=== PATIENT | male | born 1960 | race Caucasian/White ===

== ENCOUNTER 2019-12-11 10:15 | Observation (INO) | payer OTHER, SELFPAY ==
[2019-12-11] VITALS (7 sets, daily range): BP systolic 114–146; BP diastolic 73–92; PULSE 63–76; RESP 16–18; TEMP 36.3–36.7; O2SAT 99–100; BMI 28.8
--- NOTE | ~2019-12-11 | MR_ITS ---
EXAMINATION: MR brain/brain stem wo/w con EXAM DATE: 12/12/2019 07:52 INDICATION: Blurred vision, extremity tingling and numbness, right-sided headache. TECHNIQUE: Magnetic resonance imaging (MRI) of the brain/brain stem obtained without contrast. Sagit joe T1, axial diffusion, gradient echo (T2*), T1, T2, FLAIR sequences obtained. Patient was then inj ected with 17 cc intravenous Multihance contrast. Axial and coronal postcontrast T1 weighted sequence s obtained. There is no prior study for comparison. FINDINGS: There are no areas of restricted diffusion to suggest acute infarction. There is no acute hemorrhage seen on the T2*, a hemosiderin sensitive sequence. No intraparenchymal brain mass. The ve ntricles are normal in size. There are no extra-axial collections. Flow voids are seen in the cereb ral arteries on the T2-weighted sequences consistent with their expected patency. The orbits are unr emarkable. Soft tissue is unremarkable. There are no areas of abnormal enhancement on the postcont rast images. There is mild scattered mucoperiosteal thickening in paranasal sinuses. IMPRESSION: 1. No acute intracranial findings. 2. Mild mucoperiosteal thickening. Reviewed, dictated and finalized at location A.
--- NOTE | ~2019-12-11 | CT_ITS ---
EXAMINATION: CTA brain carotid EXAM DATE: 12/11/2019 13:30 INDICATION: Intermittent blurred vision. Tingling to upper and lower extremities. TECHNIQUE: Noncontrast head CT. Spiral CTA of the carotid arteries was performed with intravenous i njection 100 cc of Omnipaque 350. Axial, coronal, sagittal reformatted images reviewed. Additional r eformatted images created on dedicated 3-D workstation. NASCET comparable standard used to assess th e degree of arterial stenosis. Spiral CT angiogram cerebral arteries performed with the same intrave nous injection of contrast. Source images of the brain CTA transferred to dedicated workstation for 3 -D rotational image creation. Coronal, sagittal maximum intensity pixel images also reviewed. The d ose-length product (DLP) for this examination was 1723.56 mGy-cm. The exposure was tailored accordi ng to patient size, and iterative reconstruction (ASIR) was used as additional dose reduction techniq ue. There is no prior study for comparison. FINDINGS: There is mild bilateral carotid bulb arterial sclerosis without stenosis. The vertebral art eries are codominant. There is no carotid or vertebral basilar arterial dissection or fibromuscular dysplasia. There are no cerebral artery aneurysms. There is symmetric cerebral artery arborization. T here is right-sided posterior communicating artery dominant posterior cerebral artery. The sagitta l, transverse and sigmoid sinuses enhance normally, no venous sinus thrombosis. Internal cerebral vei ns also enhance normally. There is no acute intraparenchymal hemorrhage. No evidence of intraparenchymal brain mass lesion. N o evidence of acute infarction. There is no mass effect or midline shift. There is no obstructive hyd rocephalus suspected. There are no extra-axial collections. There are no calvarial acute fractures. Mild to moderate lower cervical disc disease. IMPRESSION: Mild carotid bulb arterial sclerosis with 0% stenosis bilaterally. No acute findings. Reviewed, dictated and finalized at location A.
--- NOTE | 2019-12-11 10:33 | ECG_ITS ---
Measurements Intervals [place] Rate: 64 P: 81 OR: 132 QRS: 66 QRSD: 85 T: 58 QT: 379 QTc: 393 Interpretive Statements SINUS RHYTHM DELAYED PRECORDIAL R/S TRANSITION BASELINE ARTIFACT- I, III, AVL, AVF BORDERLINE ECG Electronically Signed On 12-11-2019 10:45:50 CDT by Miguel Sanchez D.O.
[2019-12-11 10:54] LABS: Basophils Absolute Auto 0.1 K/mm3 (0.0-0.1); Basophils Percent Auto 0.6 % (0.2-1.2); Eosinophils Absolute Auto 0.2 K/mm3 (0-0.3); Eosinophils Percent Auto 2.4 % (0-4.4); Hematocrit 44.7 % (42.0-52.0); Hemoglobin 15.3 g/dL (14.0-18.0); Immature Granulocyte Absolute 0.03 K/mm3 (0.00-0.031); Immature Granulocyte Percent A 0.3 % (0-0.5); Lymphocytes Absolute Auto 2.65 K/mm3 (0.9-3.2); Lymphocytes Percent Auto 30.4 % (18.3-44.2); Mean Corpuscular HGB Conc 34.2 g/dl (32-36); Mean Corpuscular Hemoglobin 30.8 pg (26-34); Mean Corpuscular Volume 90.1 fl (80-100); Mean Platelet Volume 9.4 fl (7.4-10.4); Monocytes Absolute Auto 0.8 K/mm3 (0.1-0.6); Monocytes Percent Auto 8.6 % (2.6-8.5); Neutrophils Percent Auto 57.7 % (45.5-73.1); Platelet Count Result 271 k/mm3 (150-375); Red Blood Count 4.96 M/mm3 (4.6-6.20); Red Cell Distribution Width 12.1 % (11.5-14.5); White Blood Count 8.7 K/mm3 (4.5-10.0)
[2019-12-11 11:16] LABS: Anion Gap 6 mmol/L (8-16); Blood Urea Nitrogen 22 mg/dL (9-20); Calcium 9.7 mg/dL (8.4-10.2); Carbon Dioxide 30 mmol/L (22-30); Chloride 106 mmol/L (98-107); Estimated CRCL calculation 95 ml/min; Estimated Glomerular Filt Rate > 60; Glucose 96 mg/dL (75-110); Potassium 4.5 mmol/L (3.4-5.0); Sodium 142 mmol/L (137-145)
--- NOTE | 2019-12-11 12:17 | ED.GENADULT ---
HPI - General Adult General Chief complaint: Neuro Symptoms/Deficit Stated complaint: arms and legs are cold and numb Time Seen by Provider: 12/11/19 11:48 Source: patient History of Present Illness HPI narrative: Patient is a 59 y/o male complaining tingling and cold feeling in all 4 extremities for 2 weeks. There is no alleviating or exacerbating factor. He is able to move all 4 extremities and ambulate without assistance. However, he feels unsteady sometimes. He also states that he episodes of blurred vision recently. The last episode was 2 days when he was unscrewing a bolt from a car. The previous episode occurred while he was driving and he had to rack puller. He states that he lost 80-90% of his vision and he could not see any shape and only light. These episodes both lasted less than 1 minute each. Currently he has no difficulty with vision. He admits that he is under stress because his brother 1 1/2 weeks ago. Related Data Home Medications Medication Instructions Recorded Confirmed aspirin 81 mg PO DAILY 12/11/19 Allergies Allergy/AdvReac Type Severity Reaction Status Date / Time No Known Allergies Allergy Unverified 07/26/19 10:59 Review of Systems Constitutional: Constitutional: Denies chills, Denies fever(s), Denies headache(s) and Denies weakness Eyes: Eyes: Reports blurry vision ENT: Denies headache(s) and Denies neck pain Cardiovascular: Cardiovascular: Denies chest pain and Denies dyspnea Respiratory: Respiratory: Denies cough and Denies dyspnea Gastrointestinal: Gastrointestinal: Denies abdominal pain, Denies diarrhea, Denies nausea and Denies vomiting Genitourinary: Genitourinary: Denies hematuria and Denies dysuria Musculoskeletal: Musculoskeletal: Denies back pain and Denies neck pain Neurologic: Denies headache(s), Reports tingling, Reports disequilibrium and Denies weakness PMFSH Family History Family History Mother Patient's mother is , Onset Age: 89 Father Family history of cardiovascular disease, Onset Age: 82 Acute myocardial infarction, Onset Age: 82 Cerebrovascular accident Other Diabetes mellitus Social History Social History Smoking status: Current every day smoker Alcohol intake: current Gender identity (if verbalized by the patient): Male Exam Const: General: no acute distress and well developed Orientation/consciousness: oriented to person, oriented to place, oriented to time and patient oriented x3 HENMT: Head: normocephalic Ears: external ears normal General nose exam: Normal external nose present Eyes: General: appearance normal, both eyes and all related structures Visual Bravo: normal visual bravo by confrontation Conjunctivae: conjunctivae normal Neck: Neck: normal visual inspection and full ROM Chest: Chest palpation & inspection: normal inspection of the chest and no tenderness Resp: Effort & Inspection: normal respiratory effort Auscultation: clear to auscultation bilaterally Cardio: Rate: regular rate Rhythm: regular rhythm Peripheral pulses: Peripheral pulses 2+ throughout, radial pulses present bilateral and dorsalis pedis present bilateral GI: GI Palp: No abdominal tenderness and Yes Soft to palpation Skin: General skin exam: normal color and turgor normal Neuro: General: oriented to person, oriented to place, oriented to time and patient oriented x3 Cranial nerves: Yes CN's II-XII intact bilaterally Cognition (Neuro): normal cognition Speech: normal speech Motor exam (neuro): 5/5 motor strength present throughout Sensory Exam: normal sensation Coordination: [id number] test normal and [id number] test normal Extrem: General: normal to inspection, full ROM and no pedal edema Psych: Appearance: grossly normal Mental Status: mental status grossly normal Affect: normal affect Course Consultat
[2019-12-11 12:24] LABS: INR 0.9; Prothrombin Time 12.1 Seconds (11.1-14.7)
[2019-12-11 12:25] LABS: Partial Thromboplastin Time 27.3 SECONDS (22.3-36.8)
--- NOTE | 2019-12-11 13:28 | PC.NURSE ---
Pt taken to CT Scan
--- NOTE | 2019-12-11 16:45 | ADMGEN ---
This patient, Nino Sutherland, was admitted to Medical Room 349-01. Patient/family oriented to hospital policies and general routines including ID bracelet, bed and alarms, visiting hours, pain management, procedures, bathroom and other care routines, personal items, smoking policy, room service/diet, and visiting hours. Valuables list has been completed. Information on how to activate the Rapid Response Team has been discussed. Patient/Family are encouraged to report perceived risks to care and to ask questions if they do not understand what they are told or what they should do.
--- NOTE | 2019-12-11 21:31 | PM.IMHP ---
H&P: HPI History of Present Illness Date/Time: 12/11/19 21:31 Chief complaint: blurred vision Narrative: Nino Sutherland is a 59 year old male Who has a past medical history of having hyperlipidemia. The patient states that he takes a daily aspirin. He said he has been taking this for years. He stated about 2 years ago he had an episode where his vision started to fade out and he had loud buzzing in his ears his hands and his feet felt like there having numbness and tingling. The patient smokes about a pack and half a cigarettes a day. He is a social social drinker. The patient states that sometimes he feels is heartbeat really loud and feels like it is beating throughout his whole body. Sometimes he feels like his hands and feet are heavy and that he can't move them. Sometimes he feels like he is dizzy and feels like the room is spinning around. When he lay still he does not notice this. But when he is up walking or sitting he feels like the room is spinning. Patient stated he felt like his ears were plugged in his head was blood and that he was having some sinus problems over the last 2 weeks. The patient stated that he has been taking sinus medication and when his ears pop and the fluid drains that he feels better. Before 2 weeks ago he has not had any problems with this dizziness in the ears ringing. He said that he has had problems with his legs and his hands feeling numb and tingling with heaviness at times in the past. He said that really isn't all that new With the numbness and tingling to his hands and feet. He does have good positive beta pulses. Good color and circulation to all extremities. He is talking without difficulty no focal weakness. He is moving everything without difficulty. 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 Head neck CTA was read as mild carotid bulb artery sclerosis was 0% stenosis bilaterally and no acute findings. The ED physician felt that the patient either had TIAs or BPv. the patient was going to make a regular doctor's appointment with his own primary care doctor but he just stated that he was not feeling well for a while wanted to get this taking care of right away before something serious happen. He does lost his brother recently due to heart attack. He is also concerned for his health now. Date of service 12/11/2019 Review of Systems Review of Systems: All systems reviewed & are unremarkable except as noted in HPI and below Constitutional: Constitutional: Reports as per HPI and Reports no additional constitutional complaints Eyes: Eyes: Reports as per HPI and Reports no additional eye complaints ENT: Reports system reviewed and no additional complaints, except as documented and Reports Normal hearing present Cardiovascular: Cardiovascular: Reports no additional cardiovascular complaints Respiratory: Respiratory: Reports no additional respiratory complaints and Reports no additional respiratory complaints Gastrointestinal: Gastrointestinal: Reports as per HPI and Reports no additional gastrointestinal complaints Musculoskeletal: Musculoskeletal: Reports no additional musculoskeletal complaints Integumentary/Breasts: Skin/Breast: Reports system reviewed and no additional complaints, except as docu and Reports as per HPI Neurologic: Reports system reviewed and no additional complaints, except as documented, Reports as per HPI and Reports Normal hearing present Psychiatric: Psychiatric: Reports no additional psychiatric complaints and Reports as per HPI Endocrine: Endocrine: Reports no additional endocrine complaints Hematologic/Lymphatic: Hematologic/Lymphatic: Reports no additional hematologic/lymphatic complaints Allergic/Immunologic: Allergic/Immunologic: Reports no additional allergic/immunologic complaints [facility] Past Medical History Medical History (Updated 12/11/19 @ 21:40 by Marian
[2019-12-11] MEDS: MECLIZINE HCL 25 MG TABLET PO (21:52)
[2019-12-11 23:11] LABS: Amphetamine Screen Urine Negative (Negative); Barbiturate Screen Urine Negative (Negative); Benzodiazepines Screen Urine Negative (Negative); Cannabinoid Screen Urine Negative (Negative); Cocaine Screen Urine Negative (Negative); Methadone Screen Urine Negative (Negative); Opiate Screen Urine Negative (Negative); Phencyclidine Screen Urine Negative (Negative)
[2019-12-12] VITALS (7 sets, daily range): BP systolic 116–126; BP diastolic 67–74; PULSE 50–79; RESP 16; TEMP 36.3–36.4; O2SAT 98–100
--- NOTE | 2019-12-12 06:00 | ECHO_ITS ---
Patient Info Name: Nino Sutherland Age: 59 years : 1960 Gender: Male Ht: 68 in Wt: 189 lbs BSA: 2.05 m2 HR: 67 bpm BP: 125 / 74 mmHg Heart Rhythm: Sinus Rhythm Technical Quality: Good Exam Date: 12/12/2019 2:33 PM Exam Location: [facility] Patient Status: Inpatient Admit Date: 12/11/2019 Staff Ordering Physician: Ariana Boss MD Town Clerk: Chun Larry BUD Attending Provider: Eladio Mix MD Referring Physician: Gear LEUNG; Exam Type: CA echo dop bubble study w con Study Info Indications 435.9 - TIA Complete two-dimensional, color flow and Doppler transthoracic echocardiogram is performed with contrast to opacify the left ventricle and to improve the deliniation of the left ventricle endocardial borders. Strain analysis performed. Agitated saline study is performed. Contrast/Agitated Saline Contrast/Ag. Saline: Definity Amount: 3.00 ml Administered By: Kyle Salinas RN Existing IV Access: Yes Contrast/Ag. Saline: Agitated Saline Amount: 18.00 ml Administered By: Kyle Salinas RN Existing IV Access: Yes History/Risk Factors Possible TIA; blurred vision. Summary 1. Left ventricular chamber dimension is normal. 2. Definity contrast administered improved wall motion interpretation. 3. Pronounced trabeculation in LV apex noted. 4. Left ventricular systolic function is normal, estimated at 65-70%. 5. There is mildly increased left ventricular wall thickness. 6. The left ventricular diastolic function is normal. 7. E/e' 8 is minimally elevated. 8. Global longitudinal strain is mildly abnormal at -16.1%. Left Ventricle E/e' 8 is minimally elevated. Global longitudinal strain is mildly abnormal at -16.1%. Pronounced trabeculation in LV apex noted. Definity contrast administered improved wall motion interpretation. Left ventricular chamber dimension is normal. Left ventricular systolic function is normal, estimated at 65-70%. There is mildly increased left ventricular wall thickness. The left ventricular diastolic function is normal. Right Ventricle Right ventricular chamber dimension is normal. Right ventricular systolic function is normal. Left Atria Left atrial chamber dimension is normal. Right Atria Right atrial chamber dimension is normal. Atrial Septum Agitated saline injection with and without valsalva maneuver opacified right cardiac chambers without shunt to left sided cardiac chambers. Intact interatrial septum visualized by agitated saline imaging. Aortic Valve The aortic valve is trileaflet. There is no aortic valve stenosis. There is no aortic valve regurgitation. Pulmonic Valve There is no pulmonic regurgitation. Mitral Valve There is no mitral valve stenosis. There is no mitral valve regurgitation. Tricuspid Valve There is no tricuspid valve regurgitation. Pericardium/Pleural There is no pericardial effusion. Inferior Vena Cava Normal inferior vena cava with >50% collapse upon inspiration consistent with normal right atrial pressure, 5 mmHg. Aorta The aortic root size at the sinus of Valsalva is normal. Left Ventricular Outflow Tract Name Value Normal LVOT 2D ------
[2019-12-12 06:44] LABS: Basophils Absolute Auto 0.1 K/mm3 (0.0-0.1); Basophils Percent Auto 0.7 % (0.2-1.2); Eosinophils Absolute Auto 0.3 K/mm3 (0-0.3); Eosinophils Percent Auto 4.3 % (0-4.4); Hematocrit 41.9 % (42.0-52.0); Hemoglobin 14.4 g/dL (14.0-18.0); Immature Granulocyte Absolute 0.02 K/mm3 (0.00-0.031); Immature Granulocyte Percent A 0.3 % (0-0.5); Lymphocytes Absolute Auto 2.55 K/mm3 (0.9-3.2); Lymphocytes Percent Auto 36.4 % (18.3-44.2); Mean Corpuscular HGB Conc 34.4 g/dl (32-36); Mean Corpuscular Hemoglobin 31.1 pg (26-34); Mean Corpuscular Volume 90.5 fl (80-100); Monocytes Absolute Auto 0.6 K/mm3 (0.1-0.6); Monocytes Percent Auto 7.9 % (2.6-8.5); Neutrophils Absolute Auto 3.5 K/mm3 (1.3-6.7); Neutrophils Percent Auto 50.4 % (45.5-73.1); Platelet Count Result 252 k/mm3 (150-375); Red Blood Count 4.63 M/mm3 (4.6-6.20); Red Cell Distribution Width 12.3 % (11.5-14.5)
[2019-12-12 06:49] LABS: Cholesterol 127 mg/dL (0-200); HDL Direct 36 mg/dL; Triglycerides 224 mg/dL (<150)
[2019-12-12 06:52] LABS: Alanine Aminotransferase 49 U/L (4-50); Albumin Level 3.7 g/dL (3.5-5.1); Alkaline Phosphatase 77 U/L (38-126); Anion Gap 5 mmol/L (8-16); Aspartate Amino Transferase 32 U/L (17-59); Bilirubin,Total 0.7 mg/dL (0.2-1.3); Blood Urea Nitrogen 18 mg/dL (9-20); CRP < 0.5 mg/dL (<1.0); Calcium 9.1 mg/dL (8.4-10.2); Carbon Dioxide 29 mmol/L (22-30); Chloride 105 mmol/L (98-107); Estimated CRCL calculation 76 ml/min; Estimated Glomerular Filt Rate > 60; Glucose 104 mg/dL (75-110); Magnesium 2.1 mg/dL (1.6-2.3); Potassium 4.1 mmol/L (3.4-5.0); Sodium 139 mmol/L (137-145)
[2019-12-12 07:00] LABS: LDL Cholesterol Direct 63 mg/dL
[2019-12-12 07:55] LABS: Folic Acid 13.4 ng/mL (2.76->20)
[2019-12-12] MEDS: MECLIZINE HCL 6.25 MG TABLET PO ×3 (08:56→17:15)
[2019-12-12] MEDS: ATORVASTATIN 20 MG TABLET PO (08:56)
--- NOTE | 2019-12-12 11:43 | WPDNEURCNPN ---
Assessment and Plan Assessment and plan (1) BPV (benign positional vertigo): Code(s): H81.10 - Benign paroxysmal vertigo, unspecified ear Status: Acute (2) Tobacco abuse: Code(s): Z72.0 - Tobacco use Status: Chronic (3) Palpitation: Code(s): R00.2 - Palpitations Status: Acute (4) Hyperlipidemia: Code(s): E78.5 - Hyperlipidemia, unspecified Status: Chronic (5) Blurred vision: Code(s): H53.8 - Other visual disturbances Status: Acute (6) Paresthesia: Code(s): R20.2 - Paresthesia of skin Status: Acute Additional Plan Even though his examination at this stage fairly nonfocal considering his complaints of intermittent weakness of the upper and lower extremities I will prefer to obtain the MRI of the cervical spine and also EMG nerve conduction studies subsequently as an outpatient Consult date: 12/12/19 Time Seen: 11:15 HPI: Nino Sutherland is a 59 year old male has been admitted to the hospital with complaint of spinning sensation and feeling as if ears are plugged, he had been experiencing sinus problem over the last 2 weeks but he had been taking sinus medication and he was recently feeling better, he also complained of problems with his upper and lower extremities that is tingling sensation in the hands and feet ,his past history is consistent with hyperlipidemia, taking 1 aspirin daily for years history of episodic vision fading out with loud buzzing noise in his ear, smoking 1/2 pack of cigarettes per day though only drinking socially, sometime he feels his heartbeat sometimes feels hands and feet are heavy and he can't move them, in the pasthe has undergone polypectomy from the colon as well as from the vocal cord 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, evaluation up until now revealed him to have normal CBC normal, normal MRI of the brain and CTA with only mild carotid bulb sclerosis no stenosis bilaterally PMFSH Past Medical History Medical History (Updated 12/11/19 @ 21:40 by Priti Irwin NP) Hyperlipidemia Presence of tooth-root and mandibular implants Tobacco abuse Surgical History Surgical History (Updated 12/11/19 @ 21:40 by Priti Irwin NP) H/O colonoscopy with polypectomy History of vocal cord polypectomy Family History Family History Mother Patient's mother is , Onset Age: 89 Diabetes mellitus Father Family history of cardiovascular disease, Onset Age: 82 Acute myocardial infarction, Onset Age: 82 Cerebrovascular accident Sibling Acute myocardial infarction Social History Social History (Updated 12/11/19 @ 21:41 by Priti Irwin NP) Social History: 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 He is and lives with his . 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 The patient is a full code. The patient has 2 biological children and a stepdaughter. He is a social drinker and smokes about a pack and half a cigarettes a day. Since the age of 15. Smoking packs per day: 1.5 Smoking cigarettes per day: 30.0 Smoking status: Current every day smoker Alcohol intake: current Drinks per week: 2 Substance use: never Living arrangements: with family Gender identity (if verbalized by the patient): Male Spiritual care concerns: No Meds Home Medications and Allergies Home Medications Medication Instructions Recorded Confirmed Type atorvastatin 20 mg tablet 20 mg PO DAILY #90 tablet 10/05/19 12/11/19 Rx aspirin 81 mg PO DAILY 12/11/19 12/11/19 History Allergies Allergy/AdvReac Type Severity Reaction Status Date / Time No Known Allergies Allergy Unverified 07/26/19 10:59 Vital Signs Vital Signs - 24 hr 12/11/19 13:02 12/11/19 14:33 12/11/19 16:45 Temperature Pulse Rate 63 67 68 Respiratory Rate 18 18 16 Blood Pressure 121/73 132/83 Pulse Oximetry 99 99 99 12/11/19
[2019-12-12] MEDS: ASPIRIN 81 MG CHEWABLE TABLET PO (12:47)
[2019-12-12] MEDS: PERFLUTREN LIPID MICROSPHERES 1.5 ML VIAL DILUTED TO 10 ML TOTAL VOLUME IV PUSH (15:05)
--- NOTE | 2019-12-12 16:57 | PM.DS ---
DS: Admitting Diagnosis Admitting Diagnosis Admitting Diagnosis: blurred vision DS: Discharge Diagnosis Discharge Diagnosis (1) Paresthesia: Code(s): R20.2 - Paresthesia of skin Status: Acute Assessment and Plan: The patient had a CT of the brain and carotids and those were showing nothing acute. An MRI has been ordered an echo as well. Neurology consult would be greatly appreciated. (2) BPV (benign positional vertigo): Code(s): H81.10 - Benign paroxysmal vertigo, unspecified ear Status: Acute Assessment and Plan: I did start this patient on meclizine. The patient complains of having some ear fullness in his head and sinuses and complains of the room spinning at times. (3) Palpitation: Code(s): R00.2 - Palpitations Status: Acute Assessment and Plan: Patient is due to have an echo performed tomorrow. Patient may need to get a loop recorder or Holter monitor to determine if he is having any other arrhythmias. (4) Hyperlipidemia: Code(s): E78.5 - Hyperlipidemia, unspecified Status: Chronic Assessment and Plan: Check his lipid profile in the a.m. continue with the atorvastatin. (5) Tobacco abuse: Code(s): Z72.0 - Tobacco use Status: Chronic Assessment and Plan: Patient will be given smoking cessation instructions. The patient is not quite ready to stop smoking on his own at this time. He does not want a nicotine patch. (6) Blurred vision: Code(s): H53.8 - Other visual disturbances Status: Acute Assessment and Plan: Patient's lab work is within normal limits at this time. MRI has been ordered for tomorrow. DS: Summary Hospital Course Reason for hospitalization: Chief complaint: blurred vision Narrative: Nino Sutherland is a 59 year old male Who has a past medical history of having hyperlipidemia. The patient states that he takes a daily aspirin. He said he has been taking this for years. He stated about 2 years ago he had an episode where his vision started to fade out and he had loud buzzing in his ears his hands and his feet felt like there having numbness and tingling. The patient smokes about a pack and half a cigarettes a day. He is a social social drinker. The patient states that sometimes he feels is heartbeat really loud and feels like it is beating throughout his whole body. Sometimes he feels like his hands and feet are heavy and that he can't move them. Sometimes he feels like he is dizzy and feels like the room is spinning around. When he lay still he does not notice this. But when he is up walking or sitting he feels like the room is spinning. Patient stated he felt like his ears were plugged in his head was blood and that he was having some sinus problems over the last 2 weeks. The patient stated that he has been taking sinus medication and when his ears pop and the fluid drains that he feels better. Before 2 weeks ago he has not had any problems with this dizziness in the ears ringing. He said that he has had problems with his legs and his hands feeling numb and tingling with heaviness at times in the past. He said that really isn't all that new With the numbness and tingling to his hands and feet. He does have good positive beta pulses. Good color and circulation to all extremities. He is talking without difficulty no focal weakness. He is moving everything without difficulty. 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 Head neck CTA was read as mild carotid bulb artery sclerosis was 0% stenosis bilaterally and no acute findings. The ED physician felt that the patient either had TIAs or BPv. the patient was going to make a regular doctor's appointment with his own primary care doctor but he just stated that he was not feeling well for a while wanted to get this taking care of right away be
== END 2019-12-12 17:35 | disposition home or self-care (01) ==
LOC: ANHED 14:39 → ANH3MED 19:11
PROVIDERS: Emergency Medicine; Nurse Practitioner; Admitting Provider Internal Medicine; Emergency Provider Emergency Medicine; PCP Family Medicine; Visit Provider Family Medicine
DX: H53.8 Other visual disturbances (principal); R20.2 Paresthesia of skin; E78.5 Hyperlipidemia, unspecified; H81.10 Benign paroxysmal vertigo, unspecified ear; R00.2 Palpitations; F17.210 Nicotine dependence, cigarettes, uncomplicated; Z79.82 Long term (current) use of aspirin
CPT/HCPCS: 36415; 70496; 70498; 70553; 80048; 80053; 80061; 80307; 82607; 82728; 82746; 83735; 84443; 85025; 85610; 85730; 86140; 93005; 96374; 96375; 97161; 97165; 99285; A9270; A9577; C8929; G0378; Q9957; Q9967

== ENCOUNTER 2022-03-30 06:44 | Outpatient (CLI) | payer OTHER, SELFPAY ==
--- NOTE | ~2022-03-30 | MR_ITS ---
MRI of the cervical spine Clinical History: Paresthesias Technique: Axial T2-weighted and gradient images, and sagittal T1-weighted, T2-weighted, and STIR tessie ges were acquired. Findings: There is no fracture or subluxation of the cervical spine. Vertebral bodies maintain normal height . No suspicious bone marrow signal abnormality identified. At C2-C3, there is no disc bulge or herniation. No spinal canal stenosis, cord compression, or defini te neural foraminal narrowing. At C3-C4, there is no significant disc bulge or herniation. There is mild right facet arthropathy. No spinal canal stenosis, cord compression, or definite neural foraminal narrowing. At C4-C5, there is no significant disc bulge or herniation. No spinal canal stenosis, cord compressio n, or neural foraminal narrowing. At C5-C6, there is disc osteophyte complex which minimally flattens the ventral cord. There is probab le mild bilateral neural foraminal narrowing. At C6-C7, there is minimal disc bulge. No spinal canal stenosis, cord compression, or definite neural foraminal narrowing. No abnormal signal seen in the spinal cord. Paravertebral soft tissues are unremarkable. Impression: Probable minimal flattening of the ventral cord at C5-C6 related to disc osteophyte complex. Mild domingo ateral neural foraminal narrowing at this level. Additional minimal degenerative changes, as above. Reviewed, dictated and finalized at [facility]. [facility] NURSE Impression: Probable minimal flattening of the ventral cord at C5-C6 related to disc osteop hyte complex. Mild bilateral neural foraminal narrowing at this level. Additional minimal degenerative changes, as above.
== END 2022-03-30 06:45 | disposition home or self-care (01) ==
PROVIDERS: PCP Family Medicine; Visit Provider Family Medicine
DX: R20.0 Anesthesia of skin (principal); R20.2 Paresthesia of skin; R93.7 Abnormal findings on diagnostic imaging of other parts of musculoskeletal system
CPT/HCPCS: 72141

== ENCOUNTER 2022-04-24 14:08 | Outpatient (CLI) | payer OTHER, SELFPAY ==
--- NOTE | ~2022-04-24 | US_ITS ---
EXAMINATION: US arterial ankle brachial ind DATE: 04/24/2022 14:52 INDICATION: Decreased pulses. Cold feet. TECHNIQUE: Segmental pressures and plethysmographic and Doppler waveforms of the brachial and lower e xtremity arteries were obtained. COMPARISON: None. FINDINGS: Right and left brachial artery pressures of 141 mm Hg and 135 mm Hg, respectively, are concordant (no rmal difference <= 30 mmHg). The right ankle-brachial index (VIV) is 1.06 (normal >= 0.9-1.0). The right great toe-brachial index (TBI) is 0.59 (normal >= 0.65). Arterial Doppler waveforms are biphasic with brisk systolic upstrokes at both right posterior tibial and dorsalis pedis arteries. The left VIV is 0.90. The left TBI is 0.57. Arterial Doppler waveforms are triphasic in the left post erior tibial and biphasic in the left dorsalis pedis arteries, both with brisk systolic upstrokes. IMPRESSION: 1. 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 Reviewed, dictated and finalized at location [facility]. R ELECTRICIAN IMPRESSION: 1. 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
== END 2022-04-24 14:09 | disposition home or self-care (01) ==
PROVIDERS: PCP Family Medicine; Visit Provider Family Medicine
DX: R20.9 Unspecified disturbances of skin sensation (principal); R09.89 Other specified symptoms and signs involving the circulatory and respiratory systems; F17.210 Nicotine dependence, cigarettes, uncomplicated; I77.9 Disorder of arteries and arterioles, unspecified
CPT/HCPCS: 93922

== ENCOUNTER 2022-11-05 14:51 | Outpatient (CLI) | payer OTHER, SELFPAY ==
--- NOTE | ~2022-11-05 | CT_ITS ---
EXAMINATION: CT lung screening DATE: 11/05/2022 15:21 INDICATION: Personal history nicotine dependence, current smoker with 30 pack year history TECHNIQUE: Computed tomography (CT) of the chest was performed without intravenous contrast. The dose -length product (DLP) was 134.41 mGy-cm. Automated exposure control and iterative reconstruction tech [email or web address] were employed. COMPARISON: 11/25/2018 FINDINGS: There is mild emphysema. The lungs are free of acute opacities. No suspicious pulmonary nod ule is identified. No pleural effusion or pneumothorax. No pathologically enlarged thoracic lymph nod es are identified. The heart size is normal. Calcified coronary artery atherosclerosis is noted. Ther e is a 3 mm nonobstructing stone of the right kidney. There is mild thoracic spondylosis. IMPRESSION: 1. Lung-RADS category 1: Negative. Continue annual screening with noncontrast low-dose chest CT in 12 months. Reviewed, dictated and finalized at location [facility]. IMPRESSION: 1. Lung-RADS category 1: Negative. Continue annual screening with noncontrast l ow-dose chest CT in 12 months.
== END 2022-11-05 14:52 | disposition home or self-care (01) ==
PROVIDERS: PCP Family Medicine; Visit Provider Family Medicine
DX: Z12.2 Encounter for screening for malignant neoplasm of respiratory organs (principal); F17.210 Nicotine dependence, cigarettes, uncomplicated
CPT/HCPCS: 71271

== ENCOUNTER 2022-12-23 13:28 | Outpatient (CLI) | payer OTHER, SELFPAY ==
--- NOTE | 2022-12-23 14:00 | NEURO_ITS ---
Impression: # Complains of numbness and paresthesia of left upper extremity. # Severe left Carpal Tunnel Syndrome. # Note there is ulnar to median cross innervation. # Mildly abnormal needle/EMG exam. Nerve Conduction Studies Anti Sensory Summary Table Stim Site NR Peak (ms) P-T Amp (?V) Site1 Site2 Delta-P (ms) Dist (cm) Laurent (m/s) Left Median Anti Sensory (2-3nd Digit) Wrist 7.1 15.9 Wrist 2-3nd Digit 7.1 14.0 20 Wrist 5.7 14.3 Wrist 2-3nd Digit 7.1 14.0 20 Left Radial Anti Sensory (Base 1st Digit) Wrist 2.0 26.4 Wrist Base 1st Digit 2.0 0.0 Left Ulnar Anti Sensory (5th Digit) Wrist 2.8 25.5 Wrist 5th Digit 2.8 14.0 50 Motor Summary Table Stim Site NR Onset (ms) O-P Amp (mV) Site1 Site2 Delta-0 (ms) Dist (cm) Laurent (m/s) Left Median Motor Run #3 (Abd Poll Brev) Wrist 6.3 0.5 Elbow Wrist 4.3 26.0 60 Elbow 10.6 2.0 Left Ulnar Motor Run #2 (Abd Dig Minimi) Wrist 3.0 6.8 A Elbow Wrist 5.3 31.0 58 A Elbow 8.3 5.0 F Wave Studies NR F-Lat (ms) L-R F-Lat (ms) Left Median (Mrkrs) (Abd Poll Brev) DISPERSED RESPONSE NR Left Ulnar (Mrkrs) (Abd Dig Min) 30.88 EMG Side Muscle Nerve Root Ins Act Fibs Amp Dur Recrt Comment Left 1stDorInt Ulnar C8-T1 Nml Nml Nml Nml Nml Left Ext Indicis Radial (Post Int) C7-8 Nml Nml Nml Nml Nml Left Ext Digitorum Radial (Post Int) C7-8 Nml Nml Nml Nml Nml Left BrachioRad Radial C5-6 Nml Nml Nml Nml Nml Left PronatorTeres Median C6-7 Nml Nml Nml Nml Nml Left Abd Poll Brev Median C8-T1 Nml Nml Nml >12ms Reduced MTDD
== END 2022-12-23 13:29 | disposition home or self-care (01) ==
LOC: ANHNEURO 13:28
PROVIDERS: PCP Family Medicine; Visit Provider Family Medicine
DX: G56.02 Carpal tunnel syndrome, left upper limb (principal)
CPT/HCPCS: 95886; 95909

== ENCOUNTER 2023-03-16 11:59 | Outpatient (CLI) | payer OTHER, SELFPAY ==
--- NOTE | 2023-03-16 12:15 | ECG_ITS ---
Measurements Intervals [place] Rate: 59 P: 72 NE: 138 QRS: 68 QRSD: 89 T: 60 QT: 399 QTc: 398 Interpretive Statements SINUS BRADYCARDIA NONSPECIFIC T-WAVE ABNORMALITY- INFERIOR LEADS BASELINE WANDER- II, III, AVL, AVF, V4-V6 BORDERLINE ECG COMPARED TO ECG 12/11/2019 10:40:46 SINUS BRADYCARDIA NOW PRESENT T-WAVE ABNORMALITY NOW PRESENT Electronically Signed On 03-16-2023 13:00:00 TITLE SEARCH MANAGER by Miguel Sanchez D.O.
== END 2023-03-16 12:00 | disposition home or self-care (01) ==
PROVIDERS: PCP Family Medicine; Visit Provider Anesthesiology
DX: E78.5 Hyperlipidemia, unspecified (principal); Z01.818 Encounter for other preprocedural examination; R94.31 Abnormal electrocardiogram [ECG] [EKG]
CPT/HCPCS: 93005

== ENCOUNTER 2023-03-18 06:11 | Day surgery (SDC) | payer OTHER, SELFPAY ==
--- NOTE | 2023-03-18 07:02 | P.HPUP_ITS ---
History and Physical Update Update Date/Time: 03/18/23 07:02 Patient seen and examined in pre-operative holding area. No interval change in medical history or symptoms other than noting symptoms such as pain and parestehsia around elbow has gotten worse. Patient recalls previous discussion of benefits and alternatives to procedure. Continues to desire to proceed with left ectr poss open and left cubital tunnel release. Reviewed procedure, post- op expectations and risks including but not limited to bleeding, infection, injury to tendon/nerve/vessel, decreased hand function, stiffness, RSD, no change or worsening of symptoms. I discussed the possible use of assistants and their participation in the case. Patient stated understanding and signed the consent form wishing to proceed.
--- NOTE | 2023-03-18 07:02 | W.PM.PROC2 ---
Procedure Note - Detailed Date of Procedure 03/18/23 Pre-op Diagnosis Left Carpal and cubital tunnel Syndrome Post-op Diagnosis Same Procedure Performed left ectr and CuTR Surgeon Manuel Ivan MD Anesthesia MAC Description of Procedure INFORMED CONSENT: The patient was seen and examined and marked in the pre-op area.? The patient signed the consent form. PROCEDURE IN DETAIL:The patient taken back to OR on the stretcher in supine position. Time out performed with anesthesia, surgeon and staff agreeing on patient's name site and surgery to be performed SCDs were placed on the lower extremities and inflated. A tourniquet was placed on {left} upper extremity and antibiotics given IV After anesthesia administered sedation I injected {10}cc 1%lido with epi and 0.5% marcaine plain at the operative sites The?{left upper extremity}?was prepped and draped in sterile fashion the??{left upper extremity} was? exsanguinated with Esmarch bandage and tourniquet inflated to 250mmHg I made a transverse incision in the {left} volar distal wrist crease through skin and dermis with 15 blade scalpel.? Littler scissors spread down to antebrachial fascia. A small incision was made in antebrachial fascia allowing access to Carpal tunnel. I proceeded with sequential dilation staying in line with the ring finger and hugging the hook of the hamate.? I then used the synovial elevator to free any adhesions from the underside of the transverse carpal ligament. Next I was able to insert the Microaire endoscopic carpal tunnel device with direct visualization of the transverse fibers on the monitor and proceeded with complete segmental retrograde release of the ligament in its entirety.? I irrigated with normal saline and closed with 4-0 monocryl for dermis and subcuticular closure. I next proceeded with making a longitudinal incision between two heads for flexor carpi ulnaris at end of {left} cubital tunnel with 15 blade scalpel.? Littler scissors were used to spread down to FCU fascia.? An incision was made in FCU fascia and ulnar nerve identified exiting cubital tunnel.? I proceeded with complete retrograde release of the cubital tunnel including 7cm proximal for the intermuscular septum.? The nerve appeared healthy with visible vaso nervorum.? There was no subluxation on full elbow range of motion. ? I irrigated with normal saline and closure with 4-0 monocryl for dermis and subcuticular. A dressing of Dermabond, 4x4, pinky, and a volar wrist and posterior elbow splint was applied for patient safety, security, and comfort and secured with an ry bandage after the tourniquet was let down noting the hand was warm and well perfused. The patient was then awaken from anesthesia and transferred to the recovery room in stable condition.? Complications - none EBL- 0cc Disposition - home in stable conditions [facility] Billing Surgery - Charge Forward: Surgery Billing ([id number])
--- NOTE | 2023-03-18 07:32 | WPDANESEPPF ---
Anes - Initial Pre Proc Eval Procedure: Operation Date: 03/18/23 08:45 Proposed Procedures p Left Endoscopic Carpal Tunnel Release, Possible Open Carpal Tunnel Release - Manuel Ivan MD Date/Time: 03/18/23 07:32 Surgeon: Manuel Ivan MD Pre Op Diagnosis: Left Carpal Tunnel Syndrome Patient Data Age: 62 Gender: M Height: 1.73 m Weight: 87.997 kg Allergies Allergy/AdvReac Type Severity Reaction Status Date / Time No Known Allergies Allergy Verified 03/18/23 07:22 Home Medications Medication Instructions Recorded Confirmed Type atorvastatin 20 mg tablet See Rx Instructions .Route 02/26/22 03/12/23 Rx .COMPLEX #90 tabs aspirin 81 mg tablet 81 mg PO DAILY 05/13/22 03/12/23 History Patient hx anesthesia problems: none Family hx anesthesia problems: none Results Review: All pre-operative results and documents have been reviewed as part of the pre-operative evaluation. [facility] Past Medical History Medical History (Updated 03/18/23 @ 07:42 by Blair Antoine DO) BPV (benign positional vertigo) Hyperlipidemia Presence of tooth-root and mandibular implants TIA (transient ischemic attack) patient denies. Possibly an incidental CT finding? 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 He is and lives with his . His is a durable power transactional attorney for healthcare. The patient is a full code. The patient has 2 biological children and a stepdaughter. He is a social drinker and smokes about a pack and half a cigarettes a day. Since the age of 15. Smoking packs per day: 1 Smoking cigarettes per day: 20.0 Years smoked: 31 Smoking pack-years: 31.00 Smoking status: Current every day smoker Tobacco type: cigarettes Alcohol intake: current Drinks per week: 2 Alcohol use details: rarely Substance use: never Substance use type: does not use Lack of Transportation: No Lack of Food: Never True Current Housing: I Have Housing Concerned About Future Housing: No Difficulty Paying Gas/Electric Bills: No Difficulty Paying for Meds: No Currently Unemployed: No Education: High School Diploma/GED Difficulty w/ Childcare or Family Care: No Living arrangements: with family Gender identity (if verbalized by the patient): Male Spiritual care concerns: No Anes - Eval Final PreProcedure Day of Procedure 03/18/23 07:32 Patient weight: overweight Heart: regular rate and rhythm Lungs: clear to auscultation Airway: Mallampati scale class II Neurological: alert and oriented Last oral intake: >/= 8 hours ASA classification: III Emergent: no Anesthetic plan: proceed Anesthesia type and monitoring: general GIVS and standard monitoring Results Review: All pre-operative results and documents have been reviewed as part of the pre-operative evaluation. Informed Consent: The patient's anesthetic plan and its attendant risks and benefits were discussed with the patient/family/POA. Questions were solicited and answers provided to the satisfaction of the patient/family/POA.
[2023-03-18 07:34] VITALS: BP 115/76; PULSE 63; RESP 16; TEMP 36.7; O2SAT 99; BMI 29.6
[2023-03-18] MEDS: LACTATED RINGERS 1,000 ML 30 ML IV CONT (08:00)
[2023-03-18] MEDS: ceFAZolin SODIUM 2 GM/20 ML SW SYRINGE IV PUSH (08:39)
--- NOTE | 2023-03-18 08:53 | SUR.PREOP ---
700; LATE NOTE, VERBAL ORDER FROM DR SALDAÑA FOR ANCEF 2GM IVP GENERATING PLANT SUPERINTENDENT TO OR
[2023-03-18] MEDS: LIDO 1%/EPINEPHRINE 1:100,000 20 ML VIAL 10 ML INFILTRATE (09:14)
[2023-03-18 09:26] VITALS: BP 96/66; PULSE 53; RESP 16; O2SAT 96
[2023-03-18 09:43] VITALS: BP 105/84; PULSE 65; RESP 17; O2SAT 98
[2023-03-18] MEDS: oxyCODONE HCL (*CRX) 5 MG TAB IR PO (10:00)
[2023-03-18 10:02] VITALS: BP 107/65; PULSE 58; RESP 17; O2SAT 98
--- NOTE | 2023-03-18 11:40 | WPDANESPN ---
Anes - Prog Note Post-Op Date/Time: 03/18/23 11:40 Cardiovascular status: normal Respiratory status: normal Airway patency: baseline Mental status: baseline Post-Op hydration status: normal Vital Signs: Last Vital Signs Temp 36.7 C 03/18/23 07:34 Pulse 58 L 03/18/23 10:02 Resp 17 03/18/23 10:02 BP 107/65 03/18/23 10:02 Pulse Ox 98 03/18/23 10:02 O2 Del Method Room Air 03/18/23 10:02 Pain Score (VAS): 1 Post-procedural complaints: none Patient Feedback: Patient satisfied with anesthetic care. Other Findings: Patient vital signs back to baseline. Patient denies nausea and vomiting. Patient's pain under control. Patient OK for discharge.
== END 2023-03-18 10:21 | disposition home or self-care (01) ==
PROVIDERS: PCP Family Medicine; Visit Provider Plastic Surgery
PROC: 01N54ZZ Release Median Nerve, Percutaneous Endoscopic Approach (ICD-10-PCS; CPT 29848; principal; 2023-03-18 08:45)
DX: G56.02 Carpal tunnel syndrome, left upper limb (principal); G56.22 Lesion of ulnar nerve, left upper limb
CPT/HCPCS: 29848; 64718